=== PATIENT | female | born 1990 | race Caucasian/White ===

== ENCOUNTER 2017-08-08 21:16 | Emergency (ER) | payer MEDICAID ==
[~2017-08-08] VITALS: Ht 154.9 cm; Wt 54.0 kg
[2017-08-08] MEDS ORDERED: IBUP-1984 PO (22:14)
[2017-08-08] MEDS ORDERED: CLIN300C53 PO (22:14)
[2017-08-08 22:28] VITALS: BP 110/64
== END 2017-08-08 22:33 | disposition home or self-care (01) ==
LOC: ER 21:17
DX: L03.211 Cellulitis of face (principal); K08.89 Other specified disorders of teeth and supporting structures; F12.10 Cannabis abuse, uncomplicated; Z79.899 Other long term (current) drug therapy
CPT/HCPCS: 99283

== ENCOUNTER 2019-07-15 17:03 | Emergency (ER) | payer MEDICAID, OTHER ==
[~2019-07-15] VITALS: Ht 152.4 cm; Wt 52.3 kg
--- NOTE | 2019-07-15 17:41 | NUR ---
Lab at bedside.
--- NOTE | 2019-07-15 17:47 | NUR ---
Dr Diaz at bedside.
[2019-07-15] MEDS ORDERED: azithromycin 250mg tablet PO ONE (17:55)
[2019-07-15] MEDS ORDERED: CefTRIAXone 250MG IM Kit w/LIDOcaine IM ONE (17:55)
[2019-07-15 18:04] LABS: HEMATOCRIT 23.7 % (35.0-45.0); MEAN CORPUSCULAR HEMOGLOBIN 14.6 PG (27.0-31.0); MEAN CORPUSCULAR VOLUME 51.9 FL (78-98); MEAN PLATELET VOLUME 8.9 FL (7.4-10.4); PLATELET COUNT 340 X10'3 (140-440); RED BLOOD COUNT 4.56 X10'6 (4.20-5.60); WHITE BLOOD COUNT 8.8 X10'3 (4.5-11.0)
[2019-07-15 18:07] LABS: HEMOGLOBIN 6.6 g/dl (12.0-16.0)
[2019-07-15 18:23] LABS: ANISOCYTOSIS 3+; MICROCYTOSIS 3+; PLATELET ESTIMATE NORMAL; TOTAL CELLS COUNTED 100
[2019-07-15 18:24] LABS: ELLIPTOCYTES 1+; HYPOCHROMASIA 3+; POLYCHROMASIA 1+; SCHISTOCYTES FEW; TEAR DROP CELLS FEW
[2019-07-15] MEDS ORDERED: medroxyPROGESTERone acetate 150mg/ml inj IM ONE (18:35)
--- NOTE | 2019-07-15 19:15 | NUR ---
Assumed care of pt. Awaiting BBK to prepare unit of blood for transfusion; pt consented and signed paperwork. PIV access obtained. VSS. Will continue to monitor.
[2019-07-15] MEDS ORDERED: MEDR10TA10 PO (20:15)
[2019-07-15] MEDS ORDERED: medroxyprogesterone acet. 2.5mg tablet PO STA (20:16)
[2019-07-15 20:35] VITALS: BP 126/79
[2019-07-15 20:56] VITALS: BP 112/64
[2019-07-15 21:35] VITALS: BP 116/61
[2019-07-15 22:26] VITALS: BP 118/78
== END 2019-07-15 22:28 | disposition home or self-care (01) ==
LOC: ER 17:03
DX: N93.9 Abnormal uterine and vaginal bleeding, unspecified (principal); D50.0 Iron deficiency anemia secondary to blood loss (chronic); F12.90 Cannabis use, unspecified, uncomplicated; Z79.899 Other long term (current) drug therapy
CPT/HCPCS: 36415; 36430; 85025; 86885; 86900; 86901; 86920; 87491; 87591; 96372; 99285; J0696; P9016

== ENCOUNTER 2019-10-26 10:16 | Inpatient (IN) | payer OTHER, MEDICAID ==
[~2019-10-26] VITALS: Ht 154.9 cm; Wt 50.0 kg
[~2019-10-26 10:16] MED LIST: MEDR10TA10 PO
--- NOTE | 2019-10-26 12:00 | NUR ---
LAB DRAW ATTEMPTS X 2 PHLEBOTOMISTS UNSUCCESSFUL. PAGE TO PICC NURSE FOR IV LINE WITH CAPABILITIES FOR LAB DRAW.
--- NOTE | 2019-10-26 12:20 | NUR ---
PICC NURSE IS HERE AT THE BEDSIDE TO INSERT EXTENDED ACCESS LINE FOR LAB DRAWS AND IV FLUID ADMINISTRATION.
[2019-10-26 12:49] LABS: BASOPHILS # (AUTO) 0.1 X10'3 (0-0.2); BASOPHILS % (AUTO) 0.8 % (0-1); EOSINOPHILS # (AUTO) 0.1 X10'3 (0-0.9); EOSINOPHILS % (AUTO) 1.6 % (0-6); HEMATOCRIT 28.4 % (35.0-45.0); HEMOGLOBIN 8.1 g/dl (12.0-16.0); LYMPHOCYTES # (AUTO) 1.5 X10'3 (1.1-4.8); LYMPHOCYTES % (AUTO) 20.6 % (21-51); MEAN CORPUSCULAR HEMOGLOBIN 18.2 PG (27.0-31.0); MEAN CORPUSCULAR HGB CONC 28.4 g/dL (33.0-36.5); MEAN CORPUSCULAR VOLUME 64.3 FL (78-98); MONOCYTES # (AUTO) 0.5 X10'3 (0-0.9); MONOCYTES % (AUTO) 7.2 % (2-12); NEUTROPHILS % (AUTO) 69.8 % (42-75); PLATELET COUNT 285 X10'3 (140-440); RED BLOOD COUNT 4.43 X10'6 (4.20-5.60); RED CELL DISTRIBUTION WIDTH 36.4 % (11.5-14.5); WHITE BLOOD COUNT 7.2 X10'3 (4.5-11.0)
[2019-10-26 13:04] LABS: ALANINE AMINOTRANSFERASE 14 U/L (12-78); ALBUMIN 3.4 G/DL (3.4-5.0); ALKALINE PHOSPHATASE 61 IU/L (46-116); ANION GAP 8 (8-16); ASPARTATE AMINO TRANSFERASE 22 U/L (10-37); BILIRUBIN,TOTAL 0.2 MG/DL (0.1-1.0); BLOOD UREA NITROGEN 16 MG/DL (7-18); BUN/CREATININE RATIO 26.7 (6.6-38.0); CALCIUM 8.5 MG/DL (8.5-10.1); CHLORIDE 108 MMOL/L (99-107); GLUCOSE 80 MG/DL (70-104); POTASSIUM 4.5 MMOL/L (3.5-5.1); SODIUM 141 MMOL/L (135-145); TOTAL CARBON DIOXIDE 24.7 MMOL/L (24-32); TOTAL PROTEIN 6.7 G/DL (6.4-8.2); eGFR > 90 ML/MIN
[2019-10-26 13:10] LABS: PLATELET ESTIMATE NORMAL
[2019-10-26 13:11] LABS: ANISOCYTOSIS 3+; HYPOCHROMASIA 2+; MICROCYTOSIS 2+
[2019-10-26 13:14] LABS: ELLIPTOCYTES FEW; POIKILOCYTOSIS 1+; POLYCHROMASIA FEW; SCHISTOCYTES 1+; TARGET CELLS FEW; TEAR DROP CELLS 1+
[2019-10-26] MEDS ORDERED: iohexol 300mg/ml 100ml inj. ONE (14:23)
[2019-10-26] MEDS ORDERED: estrogens, conjugated 25mg inj IV ONE (14:25)
[2019-10-26] MEDS ORDERED: ondansetron/PF 4mg/2ml inj IV PRN (14:50)
[2019-10-26] MEDS ORDERED: morphine 2 MG/ML inj. syringe IV PRN (14:50)
[2019-10-26] MEDS ORDERED: mag hydrox/Alum hydrox/simeth 30ml oral suspension PO PRN (14:50)
[2019-10-26] MEDS ORDERED: acetaminophen 325mg tablet PO PRN (14:50)
[2019-10-26] MEDS ORDERED: magnesium hydroxide 30ml (MOM) UD suspension PO PRN (14:50)
[2019-10-26] MEDS ORDERED: NO HOME MEDS (15:22)
[2019-10-26] MEDS: normal saline 1000ml 1,000 ML IV SCH (16:40)
--- NOTE | 2019-10-26 17:27 | NUR ---
PT WAS WITH CHARLIE COLLAZO IN [facility] ,THATS WHY VITALS WAS NOT DOCUMENTED ,ASSUMED CARE AT 1600 PM.GIVEN MEDS TO THE PT ALSO CHECKED NAD DOCUMENTED VITALS.
--- NOTE | 2019-10-26 18:28 | NUR ---
Patient in room [facility]. I have received report from CHARLIE Manrique and had the opportunity to ask questions and assume patient care. Addendum: 10/26/19 at 1828 by Tir You RN Amended: Links added.
[2019-10-26 18:31] VITALS: BP 102/69
--- NOTE | 2019-10-26 18:45 | NUR ---
Problems reprioritized. Patient report given, questions answered & plan of care reviewed with CHARLIE Portillo. Pt A&O x4. stable v/s. on Regular diet, will be NPO after midnight for surgery tomorrow with Dr. Reece.
[2019-10-26 19:30] VITALS: BP 115/61
--- NOTE | 2019-10-26 19:55 | NUR ---
PAGER ID: [phone] MESSAGE: [phone] - admitted today for vaginal bleed, D&C in am, h/h 8.05/19, received Premarin x1 at ER and hasn't had bleeding since,blood was ordered but no consent and no parameters when to transfuse, needs order to monitor h/h q6h,thanks
--- NOTE | 2019-10-26 21:12 | NUR ---
pt states passed meatball sized blood clot. Not bleeding Addendum: 10/26/19 at 2112 by Samuel Stephens RN Amended: Links added.
[2019-10-26] MEDS: morphine 2 MG/ML inj. syringe IV PRN (21:27)
[2019-10-27] VITALS (17 sets, daily range): BP systolic 92–120; BP diastolic 49–68
[2019-10-27] MEDS: morphine 2 MG/ML inj. syringe IV PRN ×2 (02:05→07:38)
[2019-10-27] MEDS: normal saline 1000ml 1,000 ML IV SCH ×3 (02:07→17:07)
[2019-10-27 05:53] LABS: BASOPHILS # (AUTO) 0.1 X10'3 (0-0.2); BASOPHILS % (AUTO) 0.6 % (0-1); EOSINOPHILS # (AUTO) 0.1 X10'3 (0-0.9); EOSINOPHILS % (AUTO) 1.3 % (0-6); HEMATOCRIT 26.9 % (35.0-45.0); HEMOGLOBIN 7.9 g/dl (12.0-16.0); LYMPHOCYTES % (AUTO) 23.5 % (21-51); MEAN CORPUSCULAR HEMOGLOBIN 18.8 PG (27.0-31.0); MEAN CORPUSCULAR HGB CONC 29.3 g/dL (33.0-36.5); MEAN CORPUSCULAR VOLUME 64.2 FL (78-98); MEAN PLATELET VOLUME 9.4 FL (7.4-10.4); MONOCYTES # (AUTO) 0.6 X10'3 (0-0.9); MONOCYTES % (AUTO) 6.9 % (2-12); NEUTROPHILS # (AUTO) 5.9 X10'3 (1.8-7.7); NEUTROPHILS % (AUTO) 67.7 % (42-75); PLATELET COUNT 267 X10'3 (140-440); RED BLOOD COUNT 4.19 X10'6 (4.20-5.60); RED CELL DISTRIBUTION WIDTH 37.6 % (11.5-14.5); WHITE BLOOD COUNT 8.7 X10'3 (4.5-11.0)
[2019-10-27 06:08] LABS: ALBUMIN 3.2 G/DL (3.4-5.0); ANION GAP 9 (8-16); BLOOD UREA NITROGEN 14 MG/DL (7-18); BUN/CREATININE RATIO 20.6 (6.6-38.0); CALCIUM 8.7 MG/DL (8.5-10.1); CHLORIDE 109 MMOL/L (99-107); CREATININE 0.68 MG/DL (0.40-0.90); GLUCOSE 89 MG/DL (70-104); POTASSIUM 4.2 MMOL/L (3.5-5.1); SODIUM 141 MMOL/L (135-145); TOTAL CARBON DIOXIDE 23.4 MMOL/L (24-32); eGFR > 90 ML/MIN
[2019-10-27 06:33] LABS: ANISOCYTOSIS 3+
[2019-10-27 06:34] LABS: MICROCYTOSIS 2+; POIKILOCYTOSIS 1+
[2019-10-27 06:35] LABS: HYPOCHROMASIA 2+
[2019-10-27 06:36] LABS: ELLIPTOCYTES FEW
[2019-10-27 06:38] LABS: POLYCHROMASIA 1+; TEAR DROP CELLS 1+
[2019-10-27 06:39] LABS: SCHISTOCYTES 1+
[2019-10-27 06:41] LABS: PLATELET ESTIMATE NORMAL
--- NOTE | 2019-10-27 07:03 | NUR ---
Patient in room [facility]. I have received report from Lindsey GUERRA and had the opportunity to ask questions and assume patient care.
--- NOTE | 2019-10-27 08:30 | NUR ---
Patient report given to recovery room nurse Petra GUERRA.
[2019-10-27] MEDS ORDERED: TRANEXAMIC ACID 1 GM IN NACL,ISO-OS 100 ML IV ONE (09:10)
--- NOTE | 2019-10-27 09:30 | NUR ---
Patient taken to OR with guard at bedside.
[2019-10-27] MEDS ORDERED: sevoflurane 250ml liquid IH ONE (09:44)
[2019-10-27] MEDS ORDERED: fentaNYL/PF 50MCG/1 ML 2ML syringe ONE (09:51)
[2019-10-27] MEDS ORDERED: propofol inj 20 ML IV ONE (09:52)
[2019-10-27] MEDS ORDERED: ceFAZolin 1000mg inj ONE ×2 (09:52)
[2019-10-27] MEDS ORDERED: midazolam 2 mg/2 ml injection ONE (09:52)
[2019-10-27] MEDS ORDERED: metoclopramide 5 mg/ml inj IV PRN (10:25)
[2019-10-27] MEDS ORDERED: estrogens, conjugated 25mg inj IV ONE (10:25)
[2019-10-27] MEDS ORDERED: magnesium hydroxide 30ml (MOM) UD suspension PO PRN (10:25)
[2019-10-27] MEDS ORDERED: ondansetron/PF 4mg/2ml inj IV PRN ×2 (10:25→10:35)
[2019-10-27] MEDS ORDERED: LORazepam 2 mg/ml vial IV PRN (10:25)
[2019-10-27] MEDS ORDERED: HYDROcodone/acetaminophen 5mg/325mg tablet PO PRN (10:25)
[2019-10-27] MEDS ORDERED: bisacodyl 10mg suppository rectal RC PRN (10:25)
--- NOTE | 2019-10-27 10:30 | NUR ---
Received from OR via , accompanied by Anesthesiologist DR ACEVEDO and report given by Anesthesiolgist. PT SLEEPING AND HAS ET TUBE IN PLACE, VSS, NO C/O PAIN, NORA PAD IN PLACE, PIV LEFT FA 20G WITH LR 100MLS/HR, DR SMITH IN ROOM WITH RN MONITORING PT. SCD'S ON
[2019-10-27] MEDS ORDERED: ringers solution, lacted 1,000 ML IV SCH (10:34)
[2019-10-27] MEDS ORDERED: meperidine/PF 25mg/ml syringe IV PRN ×3 (10:35)
[2019-10-27] MEDS ORDERED: morphine 2 MG/ML inj. syringe IV PRN (10:35)
[2019-10-27] MEDS ORDERED: morphine 4 MG/ML inj SYRINge IV PRN (10:35)
[2019-10-27] MEDS ORDERED: proCHLORperazine 10 MG/2 ml inj IV PRN (10:35)
--- NOTE | 2019-10-27 10:41 | NUR ---
ET TUBE REMOVED, PT MOVING EXT X 4, NO C/O PAIN, ASKING QUESTIONS.
--- NOTE | 2019-10-27 10:50 | NUR ---
Received patient report from recovery room nurse Dena GUERRA. Awaiting arrival back to room 351.
--- NOTE | 2019-10-27 10:53 | NUR ---
Report called to receiving nurse. Transferred via BED Belongings . Special Issues communicated to receiving nurse ALLYSON GUERRA. PT IS AWAKE, ALERT, MOVING EXT X 4, NO C/O PAIN, NORA PAD IN PLACE, PIV PATENT, VSS, SCD'S ON, RAMÓN WATER, PT MEETS DISCHARGE CRITERIA.
[2019-10-27] MEDS: simethicone 80mg chew tab PO SCH ×2 (13:39→18:00)
[2019-10-27] MEDS ORDERED: ibuprofen 200mg tablet PO SCH (14:00)
[2019-10-27] MEDS: HYDROcodone/acetaminophen 10/325mg tab PO PRN ×2 (16:17→21:49)
[2019-10-27] MEDS ORDERED: ibuprofen 200mg tablet PO PRN (17:40)
[2019-10-27] MEDS: ferrous sulfate 325mg tablet PO SCH (18:00)
--- NOTE | 2019-10-27 18:20 | NUR ---
Received report from primary care nurse Rica GUERRA. Assumed patient care. Patient is awake and alert on room air in no apparent distress eating her dinner. Topaz at bedside. Call light and items of frequent use within reach. Will continue to monitor for changes.
--- NOTE | 2019-10-27 18:25 | NUR ---
Problems reprioritized. Patient report given, questions answered & plan of care reviewed with Michelle GUERRA.
[2019-10-27] MEDS: lactose-reduced food (Ensure High Protein) 237ml bottle PO SCH (18:26)
[2019-10-27] MEDS: docusate sod 100mg capsule PO SCH (19:48)
--- NOTE | 2019-10-27 23:34 | NUR ---
Reported off to Prudence RN. Patient is resting with relaxed and unlabored respirations on room air. Call light and items of frequent use within reach.
[2019-10-28] VITALS: BP 143/69
[2019-10-28 05:23] LABS: BASOPHILS % (AUTO) 0.5 % (0-1); EOSINOPHILS # (AUTO) 0.1 X10'3 (0-0.9); EOSINOPHILS % (AUTO) 1.2 % (0-6); HEMATOCRIT 27.6 % (35.0-45.0); HEMOGLOBIN 7.9 g/dl (12.0-16.0); LYMPHOCYTES # (AUTO) 1.6 X10'3 (1.1-4.8); LYMPHOCYTES % (AUTO) 19.9 % (21-51); MEAN CORPUSCULAR HEMOGLOBIN 18.8 PG (27.0-31.0); MEAN CORPUSCULAR HGB CONC 28.8 g/dL (33.0-36.5); MEAN CORPUSCULAR VOLUME 65.4 FL (78-98); MEAN PLATELET VOLUME 9.5 FL (7.4-10.4); MONOCYTES # (AUTO) 0.6 X10'3 (0-0.9); MONOCYTES % (AUTO) 7.4 % (2-12); NEUTROPHILS # (AUTO) 5.8 X10'3 (1.8-7.7); PLATELET COUNT 272 X10'3 (140-440); RED BLOOD COUNT 4.22 X10'6 (4.20-5.60); RED CELL DISTRIBUTION WIDTH 37.9 % (11.5-14.5); WHITE BLOOD COUNT 8.2 X10'3 (4.5-11.0)
[2019-10-28 05:25] LABS: ALBUMIN 3.1 G/DL (3.4-5.0); ANION GAP 7 (8-16); CALCIUM 8.3 MG/DL (8.5-10.1); CHLORIDE 109 MMOL/L (99-107); CREATININE 0.71 MG/DL (0.40-0.90); GLUCOSE 89 MG/DL (70-104); POTASSIUM 4.1 MMOL/L (3.5-5.1); SODIUM 142 MMOL/L (135-145); TOTAL CARBON DIOXIDE 25.6 MMOL/L (24-32); eGFR > 90 ML/MIN
[2019-10-28 05:29] LABS: BLOOD UREA NITROGEN 16 MG/DL (7-18); BUN/CREATININE RATIO 22.5 (6.6-38.0)
--- NOTE | 2019-10-28 06:17 | NUR ---
Problems reprioritized. Patient report given, questions answered & plan of care reviewed with Janet GUERRA.
--- NOTE | 2019-10-28 06:20 | NUR ---
Patient in room [facility]. I have received report from Bethany GUERRA and had the opportunity to ask questions and assume patient care.
[2019-10-28 06:54] LABS: ANISOCYTOSIS 3+; MICROCYTOSIS 2+; PLATELET ESTIMATE NORMAL
[2019-10-28 06:55] LABS: HYPOCHROMASIA 1+; POLYCHROMASIA FEW; SCHISTOCYTES FEW; TEAR DROP CELLS 1+
[2019-10-28 07:00] VITALS: BP 87/37
[2019-10-28] MEDS: docusate sod 100mg capsule PO SCH ×2 (08:00→19:48)
[2019-10-28] MEDS: simethicone 80mg chew tab PO SCH ×3 (08:04→17:55)
[2019-10-28] MEDS: ferrous sulfate 325mg tablet PO SCH ×2 (08:05→17:32)
[2019-10-28] MEDS: lactose-reduced food (Ensure High Protein) 237ml bottle PO SCH ×3 (08:06→17:32)
[2019-10-28] MEDS: HYDROcodone/acetaminophen 10/325mg tab PO PRN ×4 (10:52→23:49)
[2019-10-28 11:15] VITALS: BP 102/68
--- NOTE | 2019-10-28 12:50 | NUR ---
discharge was filled out for wrong patient this patient has not been discharged
--- NOTE | 2019-10-28 17:17 | NUR ---
Patient appears stable reports small clots passed vaginally only. Hg 7.9 and Hct 27.6 , Seen by Dr larson and Dr reece called to check on patient. NSAID DC per Dr Reece.. patient is to be observed with possible surgery pending per Dr reece. patient is an inmate, is cuffed with guard present. Up and about in room to BR.
--- NOTE | 2019-10-28 17:46 | NUR ---
Problems reprioritized. Patient report given, questions answered & plan of care reviewed with aleksey GUERRA.
[2019-10-28 19:30] VITALS: BP 109/54
[2019-10-28] MEDS: temazepam 15mg capsule PO PRN (23:53)
[2019-10-29] VITALS: BP 121/58
[2019-10-29 05:45] LABS: ANION GAP 7 (8-16); BLOOD UREA NITROGEN 18 MG/DL (7-18); BUN/CREATININE RATIO 26.5 (6.6-38.0); CALCIUM 8.7 MG/DL (8.5-10.1); CHLORIDE 109 MMOL/L (99-107); CREATININE 0.68 MG/DL (0.40-0.90); GLUCOSE 86 MG/DL (70-104); POTASSIUM 4.1 MMOL/L (3.5-5.1); SODIUM 141 MMOL/L (135-145); TOTAL CARBON DIOXIDE 25.5 MMOL/L (24-32); eGFR > 90 ML/MIN
[2019-10-29] MEDS: HYDROcodone/acetaminophen 10/325mg tab PO PRN ×4 (05:53→17:55)
[2019-10-29 06:00] LABS: BASOPHILS % (AUTO) 0.6 % (0-1); EOSINOPHILS # (AUTO) 0.1 X10'3 (0-0.9); EOSINOPHILS % (AUTO) 1.4 % (0-6); HEMATOCRIT 26.8 % (35.0-45.0); HEMOGLOBIN 7.8 g/dl (12.0-16.0); LYMPHOCYTES # (AUTO) 1.9 X10'3 (1.1-4.8); LYMPHOCYTES % (AUTO) 30.1 % (21-51); MEAN CORPUSCULAR HEMOGLOBIN 19.2 PG (27.0-31.0); MEAN CORPUSCULAR HGB CONC 29.2 g/dL (33.0-36.5); MEAN CORPUSCULAR VOLUME 65.8 FL (78-98); MEAN PLATELET VOLUME 9.5 FL (7.4-10.4); MONOCYTES # (AUTO) 0.6 X10'3 (0-0.9); MONOCYTES % (AUTO) 9.3 % (2-12); NEUTROPHILS # (AUTO) 3.7 X10'3 (1.8-7.7); NEUTROPHILS % (AUTO) 58.6 % (42-75); PLATELET COUNT 260 X10'3 (140-440); RED BLOOD COUNT 4.07 X10'6 (4.20-5.60); RED CELL DISTRIBUTION WIDTH 38.3 % (11.5-14.5); WHITE BLOOD COUNT 6.4 X10'3 (4.5-11.0)
--- NOTE | 2019-10-29 06:22 | NUR ---
Patient in room [facility]. I have received report from Pat RN and had the opportunity to ask questions and assume patient care.
[2019-10-29 07:00] VITALS: BP 96/37
[2019-10-29] MEDS: simethicone 80mg chew tab PO SCH ×3 (07:24→17:54)
[2019-10-29] MEDS: ferrous sulfate 325mg tablet PO SCH ×2 (07:24→17:55)
[2019-10-29 07:31] LABS: ANISOCYTOSIS 3+; MICROCYTOSIS 2+; PLATELET ESTIMATE NORMAL
[2019-10-29 07:32] LABS: ELLIPTOCYTES FEW; HYPOCHROMASIA 2+; SCHISTOCYTES FEW; TEAR DROP CELLS FEW
[2019-10-29] MEDS: lactose-reduced food (Ensure High Protein) 237ml bottle PO SCH ×3 (08:00→18:00)
[2019-10-29] MEDS: docusate sod 100mg capsule PO SCH ×2 (08:00→19:10)
[2019-10-29 12:21] VITALS: BP 139/64
--- NOTE | 2019-10-29 16:50 | NUR ---
patient resting most of shift, Tobias for pain with effect. patient reported that she had passed a small amount of bloody drainage. Observed 100mls mostly bloody drainage. Dr Lara pageashlyn . Will continue to monitor..
--- NOTE | 2019-10-29 17:19 | NUR ---
patient continues to drain small amount of bloody drainage on pad. Pad changed will monitor.
[2019-10-29] MEDS ORDERED: estrogens, conjugated 25mg inj IV ONE ×2 (17:40→17:50)
--- NOTE | 2019-10-29 17:40 | NUR ---
DR Chevy carranza with regards patients bleeding. Order given to give Premarin Shot Iv. May repeat every 30 mins up to three doses to stop excessive bleeding. Staff may also repeat Hemagram for excessive bleeding per Dr haskins. Addendum: 10/29/19 at 1831 by Janet Nieves RN Talked with jennifer pharmacist who stated premarin is normally repeated after 12hrs. . Report given to Bethany GUERRA
[2019-10-29 18:00] VITALS: BP 114/62
--- NOTE | 2019-10-29 18:08 | NUR ---
Pharmacy called to say that premarin has to be obtained from [facility]. . Report given to Bethany GUERRA
--- NOTE | 2019-10-29 18:44 | NUR ---
Patient in room [facility]. I have received report from Janet GUERRA and had the opportunity to ask questions and assume patient care.
[2019-10-29] MEDS: morphine 2 MG/ML inj. syringe IV PRN (20:28)
[2019-10-30] VITALS: BP 98/52
[2019-10-30] MEDS: HYDROcodone/acetaminophen 10/325mg tab PO PRN ×4 (01:20→23:07)
--- NOTE | 2019-10-30 06:30 | NUR ---
Problems reprioritized. Patient report given, questions answered & plan of care reviewed with Fartun GUERRA.
[2019-10-30 07:09] LABS: ALBUMIN 3.4 G/DL (3.4-5.0); ANION GAP 13 (8-16); BLOOD UREA NITROGEN 16 MG/DL (7-18); BUN/CREATININE RATIO 25.4 (6.6-38.0); CHLORIDE 104 MMOL/L (99-107); CREATININE 0.63 MG/DL (0.40-0.90); GLUCOSE 75 MG/DL (70-104); SODIUM 137 MMOL/L (135-145); TOTAL CARBON DIOXIDE 20.4 MMOL/L (24-32); eGFR > 90 ML/MIN
[2019-10-30 07:30] VITALS: BP 104/61
[2019-10-30] MEDS: docusate sod 100mg capsule PO SCH ×2 (07:53→19:51)
[2019-10-30] MEDS: ferrous sulfate 325mg tablet PO SCH ×2 (07:53→16:43)
[2019-10-30] MEDS: simethicone 80mg chew tab PO SCH ×3 (07:53→16:43)
[2019-10-30] MEDS: lactose-reduced food (Ensure High Protein) 237ml bottle PO SCH ×3 (08:01→18:08)
--- NOTE | 2019-10-30 10:00 | NUR ---
Spoke to MD Reece. She states that she will be rounding around 12-1230. States to continue to administer Premarin as needed for excessive bleeding. States this is 1.5 soaked pads every 2 hours.
--- NOTE | 2019-10-30 11:31 | NUR ---
Called lab to clarify status of AM labs. dish technician states CBC clotted 3 times and there is another tech that is attempting to draw her labs now.
[2019-10-30 11:48] VITALS: BP 116/62
[2019-10-30 13:29] LABS: HEMATOCRIT 24.2 % (35.0-45.0); HEMOGLOBIN 7.7 g/dl (12.0-16.0); MEAN CORPUSCULAR HEMOGLOBIN 20.6 PG (27.0-31.0); MEAN CORPUSCULAR HGB CONC 31.7 g/dL (33.0-36.5); MEAN CORPUSCULAR VOLUME 64.9 FL (78-98); MEAN PLATELET VOLUME 9.5 FL (7.4-10.4); PLATELET COUNT 204 X10'3 (140-440); RED BLOOD COUNT 3.73 X10'6 (4.20-5.60); RED CELL DISTRIBUTION WIDTH 37.6 % (11.5-14.5); WHITE BLOOD COUNT 6.5 X10'3 (4.5-11.0)
[2019-10-30 13:37] LABS: ANISOCYTOSIS 3+; MICROCYTOSIS 2+; PLATELET ESTIMATE NORMAL; TOTAL CELLS COUNTED 100
[2019-10-30 13:38] LABS: ELLIPTOCYTES FEW; HYPOCHROMASIA 2+; TARGET CELLS FEW; TEAR DROP CELLS FEW
--- NOTE | 2019-10-30 14:33 | NUR ---
Spoke with MD Reece. She is aware of H&H and does not want to infuse at this time. Will re-evaluate pt.'s status tomorrow.
[2019-10-30] MEDS: morphine 2 MG/ML inj. syringe IV PRN (16:46)
--- NOTE | 2019-10-30 18:09 | NUR ---
GAVE REPORT TO DAISHA GUERRA.
--- NOTE | 2019-10-30 18:13 | NUR ---
Patient in room [facility]. I have received report from Fartun GUERRA and had the opportunity to ask questions and assume patient care.
[2019-10-30 18:30] VITALS: BP 110/62
[2019-10-31] VITALS: BP 111/52
[2019-10-31] MEDS: HYDROcodone/acetaminophen 10/325mg tab PO PRN ×4 (04:48→21:50)
[2019-10-31 05:57] LABS: BASOPHILS # (AUTO) 0.1 X10'3 (0-0.2); EOSINOPHILS # (AUTO) 0.1 X10'3 (0-0.9); HEMOGLOBIN 8.9 g/dl (12.0-16.0); MEAN CORPUSCULAR HEMOGLOBIN 19.8 PG (27.0-31.0)
[2019-10-31 05:59] LABS: BASOPHILS % (AUTO) 1.2 % (0-1); EOSINOPHILS % (AUTO) 0.9 % (0-6); LYMPHOCYTES % (AUTO) 27.4 % (21-51); MEAN CORPUSCULAR HGB CONC 29.6 g/dL (33.0-36.5); MEAN CORPUSCULAR VOLUME 66.7 FL (78-98); MEAN PLATELET VOLUME 9.5 FL (7.4-10.4); MONOCYTES # (AUTO) 0.7 X10'3 (0-0.9); MONOCYTES % (AUTO) 9.3 % (2-12); NEUTROPHILS # (AUTO) 4.5 X10'3 (1.8-7.7); NEUTROPHILS % (AUTO) 61.2 % (42-75); PLATELET COUNT 254 X10'3 (140-440); RED BLOOD COUNT 4.49 X10'6 (4.20-5.60); WHITE BLOOD COUNT 7.3 X10'3 (4.5-11.0)
[2019-10-31 06:02] LABS: ALBUMIN 3.2 G/DL (3.4-5.0); ANION GAP 6 (8-16); BLOOD UREA NITROGEN 14 MG/DL (7-18); BUN/CREATININE RATIO 18.4 (6.6-38.0); CALCIUM 8.4 MG/DL (8.5-10.1); CHLORIDE 108 MMOL/L (99-107); CREATININE 0.76 MG/DL (0.40-0.90); GLUCOSE 100 MG/DL (70-104); POTASSIUM 3.9 MMOL/L (3.5-5.1); SODIUM 138 MMOL/L (135-145); TOTAL CARBON DIOXIDE 23.9 MMOL/L (24-32); eGFR 89 ML/MIN
--- NOTE | 2019-10-31 06:12 | NUR ---
Problems reprioritized. Patient report given, questions answered & plan of care reviewed with Fartun GUERRA.
[2019-10-31 07:06] VITALS: BP 100/56
[2019-10-31 07:15] VITALS: BP 100/56
[2019-10-31 07:15] LABS: ANISOCYTOSIS 3+; LARGE PLATELETS FEW; PLATELET ESTIMATE NORMAL
[2019-10-31 07:16] LABS: HYPOCHROMASIA 1+; MICROCYTOSIS 2+
[2019-10-31 07:17] LABS: SCHISTOCYTES FEW
[2019-10-31] MEDS: docusate sod 100mg capsule PO SCH ×2 (07:20→19:20)
[2019-10-31] MEDS: ferrous sulfate 325mg tablet PO SCH ×2 (07:20→17:05)
[2019-10-31] MEDS: simethicone 80mg chew tab PO SCH ×3 (07:20→17:05)
[2019-10-31] MEDS: lactose-reduced food (Ensure High Protein) 237ml bottle PO SCH ×3 (07:21→18:23)
--- NOTE | 2019-10-31 09:47 | NUR ---
Called [facility]. Was put on hold for 10 minutes. Finally able to speak to someone and they said results were not in yet. Let them know the urgency of the matter and that surgery was planned. They are aware and will notify this RN if results occur.
--- NOTE | 2019-10-31 11:18 | NUR ---
Called [facility]. Pathology results still pending.
[2019-10-31 12:01] VITALS: BP 96/50
--- NOTE | 2019-10-31 12:52 | NUR ---
Called [facility]. Asked for specific time frame since MD Reece is attempting to book OR. nail technician explained that a machine has to make slides and that process can not be rushed. She will notified the doctor examining the slides. Called MD Reece to make aware. Contact information given to the MD for [facility] - she states she will attempt to try and reach a doctor at [facility].
--- NOTE | 2019-10-31 13:06 | NUR ---
Pathology result estimated to result around 5pm today. MD Reece has sx scheduled for 729 tomorrow.
--- NOTE | 2019-10-31 13:07 | NUR ---
Paged CM to clarify pt. insurance status.
--- NOTE | 2019-10-31 15:11 | NUR ---
Called [facility]. Insurance still pending.
--- NOTE | 2019-10-31 16:52 | NUR ---
Pathology result negative per MD Reece. Surgery for total open abdominal hysterectomy and bilateral salpingectomy scheduled 729.
--- NOTE | 2019-10-31 18:23 | NUR ---
Gave report to Donya GUERRA.
--- NOTE | 2019-10-31 18:34 | NUR ---
Patient in room [facility]. I have received report from Fartun GUERRA and had the opportunity to ask questions and assume patient care.
[2019-10-31 20:00] VITALS: BP 109/67
[2019-10-31] MEDS: temazepam 15mg capsule PO PRN (22:54)
[2019-11-01] VITALS (19 sets, daily range): BP systolic 107–134; BP diastolic 64–83
[2019-11-01] MEDS ORDERED: tranexamic acid inj. 500 MG in normal saline 100ml IV soln 100 ML IV ONE (05:30)
[2019-11-01] MEDS ORDERED: ceFAZolin 2gm in dextrose, iso 50 ML IV ONE (05:30)
[2019-11-01] MEDS: ringers solution, lacted 1,000 ML IV SCH (05:33)
[2019-11-01 06:15] LABS: LYMPHOCYTES % (AUTO) 29.4 % (21-51); MONOCYTES # (AUTO) 0.6 X10'3 (0-0.9)
[2019-11-01 06:17] LABS: BASOPHILS % (AUTO) 0.7 % (0-1); EOSINOPHILS % (AUTO) 0.7 % (0-6); HEMATOCRIT 31.9 % (35.0-45.0); HEMOGLOBIN 9.7 g/dl (12.0-16.0); MEAN CORPUSCULAR HEMOGLOBIN 20.9 PG (27.0-31.0); MEAN CORPUSCULAR HGB CONC 30.3 g/dL (33.0-36.5); MEAN CORPUSCULAR VOLUME 68.9 FL (78-98); MEAN PLATELET VOLUME 9.4 FL (7.4-10.4); MONOCYTES % (AUTO) 8.7 % (2-12); NEUTROPHILS # (AUTO) 4.1 X10'3 (1.8-7.7); NEUTROPHILS % (AUTO) 60.5 % (42-75); PLATELET COUNT 212 X10'3 (140-440); RED BLOOD COUNT 4.62 X10'6 (4.20-5.60); RED CELL DISTRIBUTION WIDTH 38.5 % (11.5-14.5); WHITE BLOOD COUNT 6.8 X10'3 (4.5-11.0)
--- NOTE | 2019-11-01 06:36 | NUR ---
Problems reprioritized. Patient report given, questions answered & plan of care reviewed with Hilaria GUERRA.
--- NOTE | 2019-11-01 06:42 | NUR ---
Patient in room [facility]. I have received report from CHARLIE Naqvi and had the opportunity to ask questions and assume patient care.
[2019-11-01] MEDS ORDERED: fentaNYL/PF 50MCG/1 ML 2ML syringe ONE (07:11)
[2019-11-01] MEDS ORDERED: midazolam 2 mg/2 ml injection ONE (07:11)
[2019-11-01] MEDS ORDERED: BUPIVAcaine/PF 2.5 mg/ml (0.25%) 30ml vial ONE (07:16)
--- NOTE | 2019-11-01 07:17 | NUR ---
Pt out for surgery with Dr Reece. Report given to Pacu/recovery nurse.
[2019-11-01] MEDS ORDERED: glycopyrrolate 0.2mg/ml inj ONE (07:24)
[2019-11-01] MEDS ORDERED: sevoflurane 250ml liquid IH ONE (07:24)
[2019-11-01] MEDS ORDERED: neostigmine methylsulfate 1 MG/ML 10ml vial ONE (07:24)
[2019-11-01] MEDS: ferrous sulfate 325mg tablet PO SCH ×2 (07:30→19:43)
[2019-11-01] MEDS ORDERED: famotidine/PF 10 mg/ml inj IV ONE (07:42)
[2019-11-01] MEDS: simethicone 80mg chew tab PO SCH ×3 (08:00→19:44)
[2019-11-01] MEDS: docusate sod 100mg capsule PO SCH ×2 (08:00→19:44)
[2019-11-01] MEDS: lactose-reduced food (Ensure High Protein) 237ml bottle PO SCH ×5 (08:00→22:52)
[2019-11-01] MEDS ORDERED: propofol inj 20 ML IV ONE (08:20)
[2019-11-01] MEDS ORDERED: rocuronium 10mg/ml inj IV ONE (08:21)
[2019-11-01] MEDS ORDERED: LIDOcaine 2% (20mg/ml) 5ml vial ONE (08:21)
[2019-11-01] MEDS ORDERED: dexamethasone sod phosphate 4mg/ml inj. ONE (08:25)
[2019-11-01] MEDS ORDERED: ondansetron/PF 4mg/2ml inj ONE (08:25)
[2019-11-01] MEDS ORDERED: ringers solution, lacted 1,000 ML IV SCH (08:28)
[2019-11-01] MEDS ORDERED: morphine 2 MG/ML inj. syringe IV PRN (08:30)
[2019-11-01] MEDS ORDERED: acetaminophen 1,000mg/100ml IV 100 ML IV PRN (08:30)
[2019-11-01] MEDS ORDERED: proCHLORperazine 10 MG/2 ml inj IV PRN (08:30)
[2019-11-01] MEDS ORDERED: meperidine/PF 25mg/ml syringe IV PRN ×2 (08:30)
[2019-11-01] MEDS ORDERED: ondansetron/PF 4mg/2ml inj IV PRN ×2 (08:30→09:30)
[2019-11-01 08:35] LABS: ANISOCYTOSIS 3+; MICROCYTOSIS 2+
[2019-11-01 08:37] LABS: HYPOCHROMASIA 1+; POIKILOCYTOSIS FEW; SCHISTOCYTES FEW
[2019-11-01 08:38] LABS: LARGE PLATELETS FEW
[2019-11-01 08:39] LABS: PLATELET ESTIMATE NORMAL
[2019-11-01] MEDS ORDERED: metoclopramide 5 mg/ml inj IV PRN (09:30)
[2019-11-01] MEDS ORDERED: mag hydrox/Alum hydrox/simeth 30ml oral suspension PO PRN (09:30)
[2019-11-01] MEDS ORDERED: magnesium hydroxide 30ml (MOM) UD suspension PO PRN (09:30)
[2019-11-01] MEDS ORDERED: temazepam 15mg capsule PO PRN (09:30)
[2019-11-01] MEDS ORDERED: ketorolac trometh. 30mg/ml inj. IV PRN (09:30)
[2019-11-01] MEDS ORDERED: CADD PCA waste documentation MC PRN (09:30)
[2019-11-01] MEDS ORDERED: HYDROcodone/acetaminophen 5mg/325mg tablet PO PRN ×2 (09:30)
[2019-11-01] MEDS ORDERED: naloxone 0.4 mg/ml inj IV PRN (09:30)
[2019-11-01] MEDS ORDERED: normal saline 500ml IV soln 500 ML IV PRN (09:30)
[2019-11-01] MEDS ORDERED: LORazepam 2 mg/ml vial IV PRN (09:30)
--- NOTE | 2019-11-01 09:41 | NUR ---
Received from OR via surgical bed , accompanied by Anesthesiologist maria del rosario and report given by Anesthesiolgist. PATIENT WITH 20G PIV IN LEFT UE RUNNING LR AT 100. TRIPLE LUMEN CENTRAL LINE IN RIGHT NECK. PATIENT WITH MIDLINE ABDOMINAL DRESSING WITH SPOTTY BLOODY DRAINAGE PRESENT WITHIN DRESSING. MARKED AND WILL REASSESS. SCDS DONNED. VSS. 10L MASK WITH 100% SATURATIONS. PATIENT C.O. PAIN AND NAUSEA. MEDICATED FOR BOTH UPON ARRIVAL. PATIENT ONLY STATES "IT HURTS" WOULD NOT EXPOUND ON ANY FURTHER DRESCRIPTION OR IF MEDICATIONS ARE WORKING. NORA AREA SOILED WITH BLOOD. ROLLED AND CLEANSED WITH ASSIST OF SINDHU GUERRA. POSITIONED ON CLEAN LINEN AND CHUX, HEAD OF BED ELEVATED. WILL CONTINUE TO ASSESS AND TREAT FOR PAIN. Addendum: 11/01/19 at 1016 by Lex Alanis RN RN Amended: Links added.
[2019-11-01] MEDS: morphine 4 MG/ML inj SYRINge IV PRN ×2 (09:46→10:29)
[2019-11-01] MEDS: meperidine/PF 25mg/ml syringe IV PRN ×2 (09:47→10:46)
[2019-11-01 09:56] LABS: ISTAT ANION GAP 12 (8-12); ISTAT BUN 11 mg/dL (6-19); ISTAT CL 106 mmol/L (99-107); ISTAT CREATININE 0.4 mg/dL (0.6-1.1); ISTAT GLUCOSE 113 mg/dL (70-104); ISTAT HGB 10.5 g/dl (12.0-16.0); ISTAT Hct 31 %PCV (35-48); ISTAT IONIZED CALCIUM 1.26 mmol/L (1.03-1.32); ISTAT K 3.8 mmol/L (3.5-5.1); ISTAT NA 138 mmol/L (135-145); ISTAT TOTAL CO2 20 mmol/L (24-32); ISTAT eGFR > 90 ML/MIN; POC BUN/CREATININE RATIO 27.5 (6.6-38.0)
[2019-11-01] MEDS: HYDROmorphone/NS 1 mg/ml CADD 50 ML IV SCH ×7 (10:39→23:00)
--- NOTE | 2019-11-01 11:11 | NUR ---
Report called to receiving nurse. Transferred via SURGICAL BED WITH NO Belongings . Special Issues communicated to receiving nurse AYALA.BED LOW, CALL LIGHT IN REACH, VSS, PAIN AT A 9-10, ENCOURAGED USE OF CADD PUMP. ONLY 1 OF 1 CADD USE ON HIM TECH. REEXPLAINED ITS USE. PATIENT RN NOT PRESENT. WOOLEN SUITING SHRINKERSaul ELISE STATED THAT SHE'D TELL HER PATIENT IS HERE. ALL LINES SET UP AND PLUGGED IN AND VITALS SET. Addendum: 11/01/19 at 1127 by Lex Alanis RN, RN Amended: Links added.
--- NOTE | 2019-11-01 11:33 | NUR ---
pt back from OR. received report from [facility]. Pt stable c/o Moody cath discomfort. Dr Reece in to see pt. oK to D/C Tranexamic Acid, it was given at OR.
--- NOTE | 2019-11-01 11:47 | NUR ---
Initial: Pt admit with anemia and uterine mass with dysfunctional uterine bleeding. Pt now s/p dilation and curettage, hysterectomy, and bilat salpingectomy. Pt on a regular diet and receiving Ensure High Protein TID, documented with 100% PO intake of ONS and meals meeting nutrient needs. LBM 10/30. No nutrition diagnosis at this time. Will continue to follow. Recommendations: 1) Continue regular diet 2) Ensure High Protein TID per order 3) Routine bowel care 4) Scaled weights per rx Addendum: 11/01/19 at [address] Amended: Links added.
[2019-11-01] MEDS ORDERED: simethicone 80mg chew tab PO SCH (13:00)
[2019-11-01] MEDS: ibuprofen 200mg tablet PO SCH ×2 (13:09→19:45)
--- NOTE | 2019-11-01 18:48 | NUR ---
Patient in room [facility]. I have received report from Hilaria GUERRA and had the opportunity to ask questions and assume patient care.
--- NOTE | 2019-11-01 19:23 | NUR ---
Problems reprioritized. Patient report given, questions answered & plan of care reviewed with CHARLIE Green. Patient post op. vital signs stables.NO s/s of vaginal bleeding; slept most of the afternoon. siting up in bed for dinner at time of shift change.
[2019-11-02] VITALS: BP 119/66
[2019-11-02] MEDS: ringers solution, lacted 1,000 ML IV SCH (00:25)
[2019-11-02] MEDS: HYDROmorphone/NS 1 mg/ml CADD 50 ML IV SCH ×6 (01:00→11:00)
[2019-11-02] MEDS: ibuprofen 200mg tablet PO SCH ×2 (02:05→07:11)
[2019-11-02 04:00] VITALS: BP 115/66
[2019-11-02 06:22] LABS: NEUTROPHILS # (AUTO) 6.3 X10'3 (1.8-7.7)
[2019-11-02 06:23] LABS: BASOPHILS % (AUTO) 0.2 % (0-1); EOSINOPHILS % (AUTO) 0.5 % (0-6); HEMATOCRIT 27.8 % (35.0-45.0); HEMOGLOBIN 8.4 g/dl (12.0-16.0); LYMPHOCYTES # (AUTO) 1.8 X10'3 (1.1-4.8); LYMPHOCYTES % (AUTO) 19.5 % (21-51); MEAN CORPUSCULAR HEMOGLOBIN 20.6 PG (27.0-31.0); MEAN CORPUSCULAR VOLUME 68.5 FL (78-98); MEAN PLATELET VOLUME 9.5 FL (7.4-10.4); MONOCYTES # (AUTO) 0.9 X10'3 (0-0.9); MONOCYTES % (AUTO) 10.4 % (2-12); NEUTROPHILS % (AUTO) 69.4 % (42-75); PLATELET COUNT 239 X10'3 (140-440); RED BLOOD COUNT 4.07 X10'6 (4.20-5.60); WHITE BLOOD COUNT 9.1 X10'3 (4.5-11.0)
--- NOTE | 2019-11-02 06:25 | NUR ---
Problems reprioritized. Patient report given, questions answered & plan of care reviewed with Hilaria GUERRA.
[2019-11-02 06:38] LABS: ALANINE AMINOTRANSFERASE 27 U/L (12-78); ALBUMIN 3.1 G/DL (3.4-5.0); ALKALINE PHOSPHATASE 81 IU/L (46-116); ANION GAP 4 (8-16); ASPARTATE AMINO TRANSFERASE 22 U/L (10-37); BILIRUBIN,TOTAL 0.4 MG/DL (0.1-1.0); BLOOD UREA NITROGEN 7 MG/DL (7-18); BUN/CREATININE RATIO 10.3 (6.6-38.0); CALCIUM 8.8 MG/DL (8.5-10.1); CHLORIDE 107 MMOL/L (99-107); CREATININE 0.68 MG/DL (0.40-0.90); GLUCOSE 77 MG/DL (70-104); POTASSIUM 3.9 MMOL/L (3.5-5.1); SODIUM 138 MMOL/L (135-145); TOTAL PROTEIN 6.3 G/DL (6.4-8.2); eGFR > 90 ML/MIN
--- NOTE | 2019-11-02 06:38 | NUR ---
Patient in room [facility]. I have received report from CHARLIE Naqvi and had the opportunity to ask questions and assume patient care.
[2019-11-02] MEDS: docusate sod 100mg capsule PO SCH (07:10)
[2019-11-02] MEDS: simethicone 80mg chew tab PO SCH (07:11)
[2019-11-02] MEDS: ferrous sulfate 325mg tablet PO SCH (07:11)
[2019-11-02 07:37] LABS: ANISOCYTOSIS 3+; MICROCYTOSIS 2+; PLATELET ESTIMATE NORMAL
[2019-11-02 07:38] LABS: LARGE PLATELETS FEW
[2019-11-02 07:39] LABS: HYPOCHROMASIA 2+; POIKILOCYTOSIS FEW
[2019-11-02] MEDS: lactose-reduced food (Ensure High Protein) 237ml bottle PO SCH ×2 (08:00→10:34)
[2019-11-02] MEDS ORDERED: HYDR-4353 PO (12:26)
--- NOTE | 2019-11-02 13:56 | NUR ---
Pt D/C'd home in stable condition. Picc line and PIV removed with cannula intact prior discharge. No vaginal bleeding or abd discomfort, tolerating diet well. Discharge and medication instructions given to pt. pt was escorted walking to main lobby, left the hospital via private vehicle, accompanied by friend.
== END 2019-11-02 13:20 | disposition home or self-care (01) | DRG 742 ==
LOC: ER 10:17 → EEVIPCON 14:49 → ED HOLD 14:49 → SUR 3N 17:45 → PACU 10-27 10:23 → SUR 3N 10-27 11:16
PROVIDERS: ADMIT Obstetrics & Gynecology; ATTEND Family Medicine
PROC: BW211ZZ Computerized Tomography (CT Scan) of Abdomen and Pelvis using Low Osmolar Contrast (ICD-10-PCS; 2019-10-26)
PROC: 0UDB7ZZ Extraction of Endometrium, Via Natural or Artificial Opening (ICD-10-PCS; 2019-10-27)
PROC: 0UT90ZZ Resection of Uterus, Open Approach (ICD-10-PCS; 2019-11-01)
PROC: 0UT70ZZ Resection of Bilateral Fallopian Tubes, Open Approach (ICD-10-PCS; principal; 2019-11-01 07:24)
DX: D25.9 Leiomyoma of uterus, unspecified (principal); D62 Acute posthemorrhagic anemia; N32.89 Other specified disorders of bladder; Z20.828 Contact with and (suspected) exposure to other viral communicable diseases; F12.90 Cannabis use, unspecified, uncomplicated; R10.30 Lower abdominal pain, unspecified; R19.00 Intra-abdominal and pelvic swelling, mass and lump, unspecified site
CPT/HCPCS: 99291; Z7506; Z7508; 36415; 71045; 74177; 76830; 76856; 76937; 80047; 80048; 80053; 82948; 85025; 85610; 86885; 86900; 86901; 86920; 87081; 87635; 93976; A4215; A4355; A4618; A6253; A6258; A6449; A7000; C1758; G0378; J0690; J0780; J1100; J1170; J1410; J2001; J2060; J2175; J2250; J2270; J2405; J2704; J2710; J3010; J3490; J7030; J7120; Q9967

== ENCOUNTER 2020-01-13 14:09 | Emergency (ER) | payer MEDICAID, OTHER ==
[~2020-01-13 14:09] MED LIST changes: -MEDR10TA10 PO; +NO HOME MEDS
== END 2020-01-13 14:42 | disposition left against medical advice (07) ==
LOC: ER 14:09
DX: M79.673 Pain in unspecified foot (principal); Z53.21 Procedure and treatment not carried out due to patient leaving prior to being seen by health care provider

== ENCOUNTER 2020-05-23 14:00 | Emergency (ER) | payer MEDICAID ==
[2020-05-23] MEDS ORDERED: ONDA4TAB6 PO (14:32)
--- NOTE | 2020-05-23 14:52 | NUR ---
called pt as she wasn't in [facility], no answer on cell, left message to call back [phone]
--- NOTE | 2020-05-23 15:20 | NUR ---
SPOKE TO PROVIDER NELLIE PIZARRO, LET HER KNOW THAT THE PATIENT HAS LEFT
== END 2020-05-23 15:42 | disposition home or self-care (01) ==
LOC: ER 14:01
DX: J06.9 Acute upper respiratory infection, unspecified (principal); Z20.822 Contact with and (suspected) exposure to COVID-19; F12.90 Cannabis use, unspecified, uncomplicated
CPT/HCPCS: 71045; 99283

== ENCOUNTER 2021-01-19 12:44 | Emergency (ER) | payer MEDICAID ==
[~2021-01-19] VITALS: Ht 154.9 cm; Wt 47.7 kg
[~2021-01-19 12:44] MED LIST changes: +ONDA4TAB6 PO
[2021-01-19 13:06] VITALS: BP 130/79
[2021-01-19] MEDS ORDERED: CefTRIAXone 1000mg IM Kit (w/lidocaine diluent) IM STA (13:07)
[2021-01-19] MEDS ORDERED: PENICILLIN G BENZATHINE 2,400,000 UNIT/4 ML SYRINGE IM STA (13:07)
[2021-01-19] MEDS ORDERED: azithromycin 250mg tablet PO ONE (13:10)
[2021-01-19] MEDS ORDERED: METR-159 PO (13:14)
[2021-01-19] MEDS ORDERED: DOXY100C76 PO (13:14)
== END 2021-01-19 14:24 | disposition home or self-care (01) ==
LOC: ER 12:45
DX: A64 Unspecified sexually transmitted disease (principal); N89.8 Other specified noninflammatory disorders of vagina; Z79.2 Long term (current) use of antibiotics; Z79.899 Other long term (current) drug therapy; F12.90 Cannabis use, unspecified, uncomplicated
CPT/HCPCS: 36415; 86592; 87491; 87591; 96372; 99284; J0561; J0696

== ENCOUNTER 2021-05-21 01:50 | Emergency (ER) | payer MEDICAID ==
[~2021-05-21] VITALS: Ht 154.9 cm; Wt 54.5 kg
[2021-05-21 02:44] LABS: URINE HCG NEGATIVE (NEG)
[2021-05-21 02:50] VITALS: BP 102/54
[2021-05-21 03:03] LABS: CLARITY,URINE SLIGHTLY CLOUDY (Clear); COLOR,URINE YELLOW (Yellow); GLUCOSE, URINE NEGATIVE (Neg); KETONES,URINE NEGATIVE (Neg); LEUKOCYTE ESTERASE ,URINE NEGATIVE (Neg); NITRITES, URINE POSITIVE (Neg); OCCULT BLOOD,URINE NEGATIVE (Neg); PH,URINE 5.5 (4.8-8.0); PROTEIN,URINE NEGATIVE (Neg); UROBILINOGEN,URINE 0.2 E.U/dL (0.2-1.0)
[2021-05-21 03:24] LABS: UA COLLECTION TYPE NON-SPECIFIED
[2021-05-21 03:28] LABS: BACTERIA,URINE 3+ /HPF (Neg); CAL OXALATE CRYSTALS 2+ /HPF (NEGATIVE); MUCUS STRANDS NONE SEEN /LPF (Neg); RBC,URINE 0-2 /HPF (0-2); SQUAMOUS EPITHELIAL CELL,UR FEW /LPF (FEW)
--- NOTE | 2021-05-24 10:39 | NUR ---
Patient was not given any medications at discharge. Patient listed phone number was not in service. Letter sent to her listed address. Dr. Gomez would like patient to be placed on Doxycycline 100 mg 1 tab PO Q12H x14 days. Dr Gomez would like patient to know that she is positive for gonorrhea and we are empirically treating for syphillis and she needs to follow up for test of cure. No sex til then.
== END 2021-05-21 02:59 | disposition home or self-care (01) ==
LOC: ER 01:51
DX: Z02.89 Encounter for other administrative examinations (principal); A64 Unspecified sexually transmitted disease; F12.90 Cannabis use, unspecified, uncomplicated; Z79.899 Other long term (current) drug therapy
CPT/HCPCS: 36415; 81001; 81025; 87077; 87088; 87186; 87491; 99283

== ENCOUNTER 2021-06-23 01:44 | Emergency (ER) | payer MEDICAID ==
[~2021-06-23] VITALS: Ht 154.9 cm; Wt 58.6 kg
[2021-06-23] MEDS ORDERED: HYDROcodone/acetaminophen 10/325mg tab PO ONE (02:05)
[2021-06-23] MEDS ORDERED: ondansetron 4mg rapidly disintigrating tab PO ONE (02:05)
[2021-06-23] MEDS ORDERED: TETanus/Pertussis (Acell)/Diphther VAC/PF (Tdap-Adult) 0.5ml syringe IMVAC ONE (02:25)
[2021-06-23] MEDS ORDERED: bacitracin 15gm ointment TP ONE (02:25)
[2021-06-23] MEDS ORDERED: CEPH-585 PO (02:26)
[2021-06-23] MEDS ORDERED: HYDR-3972 PO (02:26)
[2021-06-23] MEDS ORDERED: ONDA4TAB12 PO (02:26)
[2021-06-23 04:36] VITALS: BP 112/72
== END 2021-06-23 04:39 | disposition home or self-care (01) ==
LOC: ER 01:45
DX: S82.841A Displaced bimalleolar fracture of right lower leg, initial encounter for closed fracture (principal); V86.99XA Unspecified occupant of other special all-terrain or other off-road motor vehicle injured in nontraffic accident, initial encounter; Y93.89 Activity, other specified; Y92.89 Other specified places as the place of occurrence of the external cause; Y99.8 Other external cause status
CPT/HCPCS: 73610; 73630; 90471; 90715; 99284

== ENCOUNTER 2021-07-15 08:43 | Day surgery (SDC) | payer MEDICAID ==
[~2021-07-15] VITALS: Ht 154.9 cm; Wt 55.8 kg
[2021-07-15] VITALS (13 sets, daily range): BP systolic 75–107; BP diastolic 37–70
[~2021-07-15 08:43] MED LIST changes: +CEPH-585 PO; +HYDR-3972 PO; +ONDA4TAB12 PO
[2021-07-15 10:02] LABS: BASOPHILS % (AUTO) 0.5 % (0-1); EOSINOPHILS # (AUTO) 0.1 X10'3 (0-0.9); EOSINOPHILS % (AUTO) 1.6 % (0-6); LYMPHOCYTES # (AUTO) 2.4 X10'3 (1.1-4.8); LYMPHOCYTES % (AUTO) 32.9 % (21-51); MEAN CORPUSCULAR HEMOGLOBIN 30.2 PG (27.0-31.0); MEAN CORPUSCULAR HGB CONC 34.3 g/dL (33.0-36.5); MEAN CORPUSCULAR VOLUME 87.9 FL (78-98); MEAN PLATELET VOLUME 8.5 FL (7.4-10.4); MONOCYTES # (AUTO) 0.8 X10'3 (0-0.9); MONOCYTES % (AUTO) 10.6 % (2-12); NEUTROPHILS % (AUTO) 54.4 % (42-75); PRE OP HEMATOCRIT 39.5 % (35.0-45.0); PRE OP HEMOGLOBIN 13.5 g/dL (12.0-16.0); PRE OP PLATELET COUNT 228 X10'3 (140-440); RED BLOOD COUNT 4.49 X10'6 (4.20-5.60); RED CELL DISTRIBUTION WIDTH 13.9 % (11.5-14.5)
[2021-07-15 10:14] LABS: HCG SERUM QL NEGATIVE
[2021-07-15 10:26] LABS: ALBUMIN 3.6 G/DL (3.4-5.0); ALBUMIN/GLOBULIN RATIO 0.9 (1.1-1.5); ALKALINE PHOSPHATASE 85 IU/L (46-116); BLOOD UREA NITROGEN 16 MG/DL (7-18); BUN/CREATININE RATIO 31.4 (6.6-38.0); CALCIUM 8.9 MG/DL (8.5-10.1); CHLORIDE 107 MMOL/L (99-107); CREATININE 0.51 MG/DL (0.40-0.90); PRE OP ALT 14 U/L (30-65); PRE OP ANION GAP 7 (8-16); PRE OP BILIRUB, TOTAL 0.4 MG/DL (0.0-1.0); PRE OP GLUCOSE 84 MG/DL (70-104); PRE OP SODIUM 139 MMOL/L (135-145); TOTAL CARBON DIOXIDE 25.4 MMOL/L (24-32); TOTAL PROTEIN 7.5 G/DL (6.4-8.2); eGFR > 90 ML/MIN
[2021-07-15 10:30] LABS: PRE OP AST 26 U/L (10-37); PRE OP POTASSIUM 4.5 MMOL/L (3.4-5.1)
[2021-07-15] MEDS ORDERED: famotidine 20mg tablet PO ONE (10:37)
[2021-07-15] MEDS ORDERED: ringers solution, lacted 1,000 ML IV SCH ×2 (10:40→13:00)
[2021-07-15] MEDS ORDERED: gabapentin 300mg capsule PO ONE (10:45)
[2021-07-15] MEDS ORDERED: vancomycin/NS 1 GM ADD-VANTAGE 250 ML X 1 DOSE IV ONE (10:45)
[2021-07-15] MEDS ORDERED: celeCOXIB 100mg capsule PO ONE (10:45)
[2021-07-15] MEDS ORDERED: cefazolin/dext.iso 2gm/50ml 50 ML IV ONE (10:45)
[2021-07-15] MEDS ORDERED: acetaminophen 325mg tablet PO ONE (10:45)
[2021-07-15] MEDS ORDERED: tranexamic acid 1gm/0.7% sal. 100 ML IV ONE (10:45)
[2021-07-15] MEDS ORDERED: metoclopramide 5 mg/ml inj IV ONE (10:45)
[2021-07-15] MEDS ORDERED: oxyCODONE SR 10mg (sust. release) tab PO ONE (10:45)
[2021-07-15] MEDS ORDERED: ondansetron/PF 4mg/2ml inj IV PRN (13:00)
[2021-07-15] MEDS ORDERED: labetalol 20mg/4ml (5mg/ml) syringe IV PRN (13:00)
[2021-07-15] MEDS ORDERED: morphine 4 MG/ML inj SYRINge IV PRN (13:00)
[2021-07-15] MEDS ORDERED: fentaNYL/PF 50MCG/1 ML 2ML syringe IV PRN ×3 (13:00)
[2021-07-15] MEDS ORDERED: hydrALAZINE 20mg/ml inj. IV PRN (13:00)
[2021-07-15] MEDS ORDERED: FENTANYL CITRATE/PF 50 MCG/1 ML VIAL ONE ×2 (14:26→15:56)
[2021-07-15] MEDS ORDERED: midazolam 1 mg/ML 2ml injection ONE (14:26)
[2021-07-15] MEDS ORDERED: propofol inj 20 ML IV ONE (15:27)
[2021-07-15] MEDS ORDERED: dexamethasone sod phosphate 4mg/ml inj. ONE (15:27)
[2021-07-15] MEDS ORDERED: LIDOcaine 2% (20mg/ml) 5ml vial ONE (15:27)
[2021-07-15] MEDS ORDERED: ondansetron/PF 4mg/2ml inj ONE (15:28)
[2021-07-15] MEDS ORDERED: ketorolac trometh. 30mg/ml inj. ONE (15:54)
--- NOTE | 2021-07-15 16:15 | NUR ---
PT ARRIVED TO VIA GURNEY, ACCOMPANIED BY DR ASHER-ANESTHESIA REPORT GIVEN, PT DIFFICULT TO AROUSE, BP CHRONICALLY LOW-STILL LOW UPON ARRIVAL, DR ASHER AWARE-NO NEW ORDERS GIVEN, PT IN REVERSE [place] POSITION AND RECEIVING IVF BOLUS CURRENTLY, RIGHT FOOT ELEVATED-DRSG CDI, +CAP REFILL, SCD ON, PIV 20G TO LUE, NO APPEARANCE OF PAIN NOTED
--- NOTE | 2021-07-15 18:05 | NUR ---
PT AWAKE, BP MUCH MORE STABLE-VSS, DENIES PAIN, DRSG-CDI, +CAP REFILL, BLOCK TO RIGHT FOOT STILL WORKING, PIV X2 D/CD-CANULA INTACT, SCDS OFF, ABLE TO BE UP AND GETTING DRESSED, MOVING WITH CRUTCHES, D/C INSTRUCTIONS GIVEN TO PT-ALL QUESTIONS ANSWERED, TAKEN VIA W/C TO VEHICLE WITH ALL BELONGINGS.
== END 2021-07-15 18:05 | disposition home or self-care (01) ==
LOC: PAS 08:43
PROVIDERS: ATTEND Orthopaedic Surgery
DX: S82.851A Displaced trimalleolar fracture of right lower leg, initial encounter for closed fracture (principal); G89.18 Other acute postprocedural pain; Z79.899 Other long term (current) drug therapy; Z20.822 Contact with and (suspected) exposure to COVID-19; V86.95XA Unspecified occupant of 3- or 4- wheeled all-terrain vehicle (ATV) injured in nontraffic accident, initial encounter; Y93.89 Activity, other specified; Y92.89 Other specified places as the place of occurrence of the external cause; Y99.8 Other external cause status
CPT/HCPCS: 27822; 36415; 64445; 64447; 73600; 76000; 76942; 80053; 84703; 85025; 86885; 86900; 86901; 87635; 93005; A6222; C1713; C9803; J1100; J1885; J2250; J2405; J2704; J2765; J3010; J3370; J3490; J7030; J7120; Z7506; Z7508; Z7512; A4618; A6449; A7000; C1769

== ENCOUNTER 2021-12-23 18:16 | Emergency (ER) | payer MEDICAID ==
[~2021-12-23] VITALS: Ht 154.9 cm; Wt 55.2 kg
[~2021-12-23 18:16] MED LIST changes: -CEPH-585 PO; -HYDR-3972 PO; -ONDA4TAB12 PO; -ONDA4TAB6 PO
[2021-12-23 18:24] VITALS: BP 116/63
[2021-12-23 19:03] LABS: URINE HCG NEGATIVE (NEG)
[2021-12-23 19:05] LABS: CLARITY,URINE CLEAR (Clear); COLOR,URINE YELLOW (Yellow); GLUCOSE, URINE NEGATIVE (Neg); KETONES,URINE NEGATIVE (Neg); LEUKOCYTE ESTERASE ,URINE NEGATIVE (Neg); NITRITES, URINE NEGATIVE (Neg); OCCULT BLOOD,URINE NEGATIVE (Neg); PH,URINE 5.5 (4.8-8.0); PROTEIN,URINE TRACE mg/dl (Neg)
[2021-12-23] MEDS ORDERED: CefTRIAXone 1000mg IM Kit (w/lidocaine diluent) IM STA (19:12)
[2021-12-23 19:15] LABS: UA COLLECTION TYPE CLN CATCH MIDSTREAM
[2021-12-23] MEDS ORDERED: azithromycin 250mg tablet PO ONE (19:15)
[2021-12-23 19:17] LABS: BACTERIA,URINE 1+ /HPF (Neg); RBC,URINE 0-2 /HPF (0-2); SQUAMOUS EPITHELIAL CELL,UR MANY /LPF (FEW); WBC,URINE 0-4 /HPF (0-4)
[2021-12-23] MEDS ORDERED: DOXY100C76 PO (19:36)
== END 2021-12-23 19:45 | disposition home or self-care (01) ==
LOC: ER 18:16
DX: R30.0 Dysuria (principal); Z20.2 Contact with and (suspected) exposure to infections with a predominantly sexual mode of transmission; S00.80XA Unspecified superficial injury of other part of head, initial encounter; F12.90 Cannabis use, unspecified, uncomplicated; X58.XXXA Exposure to other specified factors, initial encounter; Y93.89 Activity, other specified; Y92.89 Other specified places as the place of occurrence of the external cause; Y99.8 Other external cause status
CPT/HCPCS: 36415; 81001; 81025; 87491; 87591; 96372; 99284; J0696; Q0112

== ENCOUNTER 2024-07-04 15:33 | Emergency (ER) | payer MEDICAID ==
[~2024-07-04] VITALS: Ht 152.4 cm; Wt 50.9 kg
[2024-07-04 15:42] VITALS: BP 123/73; PULSE 73; RESP 18; TEMP 97.6; O2SAT 100
[2024-07-04] MEDS ORDERED: PRED20TA PO (16:34)
[2024-07-04] MEDS: dexamethasone sod phosphate 10mg/ml inj IM ONE (17:10)
== END 2024-07-04 17:35 | disposition home or self-care (01) ==
LOC: ER 15:34
DX: L23.7 Allergic contact dermatitis due to plants, except food (principal); F12.90 Cannabis use, unspecified, uncomplicated
CPT/HCPCS: 96372; 99283; J1100

== ENCOUNTER 2024-11-01 20:13 | Emergency (ER) | payer MEDICAID ==
[~2024-11-01] VITALS: Ht 160 cm; Wt 48.4 kg
[2024-11-01 20:17] VITALS: BP 94/49; PULSE 99; RESP 15; O2SAT 100
[2024-11-01] MEDS ORDERED: AMOX-580 PO (22:51)
--- NOTE | 2024-11-01 22:51 | Physician Documentation ---
History of Present Illness ~ Chief Complaint: Bite-animal Stated Complaint: DOG BITE Time Seen by MD: 21:42 Primary Medical Doctor: [facility] Patient is seen today complaints of the dog bite to her left forearm happened couple of days ago. Patient states she washed it off with hose water and states the dog is known to them and is vaccinated. Patient is concerned for possible infection. Patient denies any fevers or chills and has no other concern or complaint at this time. Tetanus within 5 years?: Yes Medication Reconciliation Allergies: Coded Allergies: No Known Allergies (Unverified , 11/01/24) Miscellaneous Medications Home Med List (No Home Medications), (Reported) Past Medical History Past Medical History: No Pertinent History Past Surgical History: no surgical history Alcohol Use: None Drug Use: marijuana Lives with: S/O Lives In: Home Occupation: employed Review of Systems Constitutional: Denies: chills, fever, weakness Eyes: Denies: pain, blurred vision ENT: Denies: ear pain, nose pain, throat pain, mouth pain Respiratory: Denies: cough, shortness of breath Cardiovascular: Denies: chest pain, palpitations Gastrointestinal: Denies: abdominal pain, nausea, vomiting Genitourinary: Denies: burning, dysuria Female Genitalia: Denies: vaginal discharge, pelvic pain Neurological: Denies: headache, dizziness Musculoskeletal: Denies: pain, swelling Integumentary: Denies: rash, lesions Allergic/Immunologic: Denies: hives, itching Hematologic/Lymphatic: Denies: no symptoms reported Psychiatric: Denies: depression, anxiety Physical Exam Vital Signs: Source: Temporal, Heart Rate: 99, Respiratory Rate: 15, BP: 94/49, Pulse Oximetry: 100, Weight: 48.350 Physical Exam General: Awake and Alert, no acute distress. HEENT: Conjunctiva pink, Sclera clear, Mucus Membranes moist. Neck: Supple without masses and tenderness. Resp: Unlabored. Lungs clear to auscultation bilaterally. Heart: Regular Rate and rhythm, normal S1 and S2 without murmur, rub or gallop. Musculoskeletal: Patient on exam has to puncture linares on the extensor surface of the left forearm midway, there is small amount of serous drainage, no significant erythema or induration of but the area is mildly swollen and mildly tender to palpation. Patient is neurovascularly intact distally of the left upper extremity motor function and strength intact distally. Extremities: No cyanosis,clubbing or edema. Skin: Warm and Dry. Progress Results/Orders Results/Orders Vital Signs 11/01/24 20:17 Pulse 99 Resp 15 B/P (MAP) 94/49 Pulse Ox 100 Medical Decision Making Findings Patient is seen today complaints of the dog bite to her left forearm happened couple of days ago. Patient states she washed it off with hose water and states the dog is known to them and is vaccinated. Patient is concerned for possible infection. Patient denies any fevers or chills and has no other concern or complaint at this time. I did send prescription of Augmentin to patient's pharmacy however patient left prior to communication of this treatment. Patient will follow up with primary care in 2-5 days if no better as needed sooner. Return to ED with any worsening, concerning or changing symptoms. Departure Disposition: 07 LEFT AWOL/ELOPED Impression: Primary Impression: Dog bite Qualified Codes: W54.0XXA - Bitten by dog, initial encounter Condition: Stable Discharge Instructions: Animal Bite, Adult Additional Instructions: I did send prescription of Augmentin to patient's pharmacy however patient left prior to communication of this treatment. Patient will follow up with primary care in 2-5 days if no better as needed sooner. Return to ED with any worse sheila, concerning or changing symptoms. Referrals: NO PRIMARY CARE PROVIDER (PCP) Prescriptions Amox Tr/Potassium Clavulanate 875/125 MG (Augmentin 875/125 MG) 875 Mg-125 Mg Tablet 1 TAB PO Q12H for 10 Days, #20 TAB Prov: CHIOMA PARK 11/01/24 Signature Scribe Signature: No scribe Attestation: No scribe CHIOMA PARK PAC Nov 01, 2024 22:51
[2024-11-02] MEDS ORDERED: AMOX-580 PO (15:46)
== END 2024-11-01 22:01 | disposition left against medical advice (07) ==
LOC: ER 20:14
DX: S51.832A Puncture wound without foreign body of left forearm, initial encounter (principal); F12.90 Cannabis use, unspecified, uncomplicated; W54.0XXA Bitten by dog, initial encounter; Y93.89 Activity, other specified; Y92.89 Other specified places as the place of occurrence of the external cause; Y99.8 Other external cause status
CPT/HCPCS: 99283

== ENCOUNTER 2024-11-02 15:35 | Emergency (ER) | payer MEDICAID ==
[~2024-11-02] VITALS: Ht 152.4 cm; Wt 49.1 kg
[~2024-11-02 15:35] MED LIST changes: +AMOX-580 PO
[2024-11-02 15:39] VITALS: BP 94/59; PULSE 64; RESP 16; TEMP 99.3; O2SAT 98
--- NOTE | 2024-11-02 15:45 | Physician Documentation ---
History of Present Illness ~ Chief Complaint: Bite-animal Stated Complaint: WOUND RECHECK Time Seen by MD: 15:47 Primary Medical Doctor: [facility] HPI 34-year-old female presents to the knee after incur any dog bite three days ago. The dog bite caused a multiple punctures on her left forearm. She also injured her right eye causing a black eye. So I does not bother her however her left arm has a increased redness and swelling along with drainage from the puncture sites. Denies any fever Tetanus within 5 years?: Yes Medication Reconciliation Allergies: Coded Allergies: No Known Allergies (Unverified , 11/02/24) Scheduled Amox Tr/Potassium Clavulanate 875/125 MG (Augmentin 875/125 MG), 1 TAB PO Q12H Amox Tr/Potassium Clavulanate 875/125 MG (Augmentin 875/125 MG), 1 TAB PO Q12H Miscellaneous Medications Home Med List (No Home Medications), (Reported) Past Medical History Past Medical History: No Pertinent History Past Surgical History: no surgical history Alcohol Use: None Drug Use: marijuana Lives with: S/O Lives In: Home Occupation: employed Review of Systems All Other Systems at this time: Reviewed and Negative ROS As stated above in the HPI, otherwise all systems are reviewed and negative. Physical Exam Vital Signs: Temperature: 99.3, Source: Temporal, Heart Rate: 64, Respiratory Rate: 16, BP: 94/59, Pulse Oximetry: 98, Weight: 49.150 Physical Exam General: Alert, no apparent distress. HEENT: PERRL, EOMI, no injection, moist mucous membranes. Black heme-positive so in the left eye. No evidence of displacement or deformity Extremities: several punctures left forearm with notable drainage erythema in the surrounding tissue Neurologic: Oriented x4. Psychiatric: Normal mood and affect. Skin: Normal color, warm and dry. No edema, no ecchymosis. Progress Results/Orders Results/Orders Completed Orders - ALEXANDER ROSAS NP Amox Tr/Potassium Clavulanate (Augmentin (11/02/24 15:45) Medications Received in ER Medications (Trade) Dose Ordered Sig/Юлия Route PRN Reason Start Time Stop Time Status Last Admin Dose Admin (Augmentin 875-125mg tablet) 1 tab ONCE ONCE PO 11/02/24 15:45 11/02/24 15:47 DC 11/02/24 16:11 1 TAB Vital Signs 11/02/24 15:39 Temp 99.3 Pulse 64 Resp 16 B/P (MAP) 94/59 Pulse Ox 98 Departure Disposition: HOME / SELF CARE / HOMELESS Impression: Primary Impression: Dog bite Condition: Stable Discharge Instructions: Animal Bite, Adult Referrals: NO PRIMARY CARE PROVIDER (PCP) Prescriptions Amox Tr/Potassium Clavulanate 875/125 MG (Augmentin 875/125 MG) 875 Mg-125 Mg T ablet 1 TAB PO Q12H for 10 Days, #20 TAB Prov: ALEXANDER ROSAS CATERING DIRECTOR 11/02/24 Signature Scribe Signature: Attestation: Scribed for Alexander Rosas Teller Head by Alexander Rosas - TUYET . 11/02/24 22:31 ALEXANDER ROSAS CATERING DIRECTOR Nov 02, 2024 15:45
[2024-11-02] MEDS ORDERED: AMOX-580 PO (15:46)
[2024-11-02] MEDS: amox tr/potassium clavulanate 875/125mg TAB PO ONE (16:11)
== END 2024-11-02 16:22 | disposition home or self-care (01) ==
LOC: ER 15:36
DX: S51.832A Puncture wound without foreign body of left forearm, initial encounter (principal); W54.0XXA Bitten by dog, initial encounter; F12.90 Cannabis use, unspecified, uncomplicated; Y93.89 Activity, other specified; Y92.89 Other specified places as the place of occurrence of the external cause; Y99.8 Other external cause status
CPT/HCPCS: 99283